=== PATIENT | male | born 1995 | race African-American/Black ===

== ENCOUNTER 2025-01-15 08:08 | Emergency (ER) | payer SELFPAY ==
[~2025-01-15] VITALS: Ht 180.3 cm; Wt 75.2 kg
[2025-01-15] MEDS: albuterol 2.5 MG/3 ML nebule NEB ONE (08:24)
--- NOTE | 2025-01-15 08:26 | Physician Documentation ---
History of Present Illness ~ Chief Complaint: Asthma Stated Complaint: ASTHMA Time Seen by MD: 08:17 HPI He had a 29-year-old male presents to the ED with a complaint of wheezing and shortness a breath which has increased over the last several days he adds that he has a chronic nasal congestion. States he is new to the area proximally three months in his not gotten any prescription from any doctors locally. States he is using albuterol 2-3 times daily does not currently have a inhaled steroid prescribed to him. Reports that his wheezing is worse at night. Medication Reconciliation Allergies: Coded Allergies: No Known Allergies (Unverified , 01/15/25) Scheduled Budesonide/Formoterol Fumarate (Symbicort 80-4.5 Mcg Inhaler), 2 PUFFS INH Q12H Guaifenesin (Mucinex), 1 TAB PO Q12H Terbinafine Hcl (Terbinafine Hcl), 1 APPLIC TOP Q12H Scheduled PRN albuterol inhaler (Pro-Air Inhaler), 2 PUFFS INH Q4HPRN PRN for wheezing Review of Systems All Other Systems at this time: Reviewed and Negative ROS As stated above in the HPI, otherwise all systems are reviewed and negative. Physical Exam Vital Signs: Temperature: 98.1, Source: Oral, Heart Rate: 95, Respiratory Rate: 16, BP: 138/81, Pulse Oximetry: 94, Weight: 75.200 Oxygen Flow Rate: 0 Physical Exam General: Alert, mild distress Neck: Full range of motion. Respiratory: wheezing b/l Chest: No accessory muscle use. Cardiovascular: Regular rate and rhythm, no murmurs. Neurologic: Oriented x4. Psychiatric: Normal mood and affect. Progress Results/Orders Results/Orders Completed Orders - SUKHI TOVAR NP Albuterol 2.5mg/3ml Nebule (Proventil 2. (01/15/25 08:20) * Rt Notification Q1H (01/15/25 08:16) Ipratropium Nebule (Atrovent Nebule) (01/15/25 08:30) Dexamethasone Inj (Decadron 10mg/Ml Inj) (01/15/25 08:32) Medications Received in ER Medications (Trade) Dose Ordered Sig/Gray Route PRN Reason Start Time Stop Time Status Last Admin Dose Admin (Proventil 2.5 MG/3ML nebule) 2.5 mg ONCE ONCE NEB 01/15/25 08:20 01/15/25 08:21 DC 01/15/25 08:24 2.5 MG (Atrovent nebule) 0.5 mg ONCE ONCE IH 01/15/25 08:30 01/15/25 08:31 DC 01/15/25 08:33 0.5 MG (Decadron 10mg/ ml inj) 10 mg ONCE STAT PO 01/15/25 08:32 01/15/25 08:33 DC 01/15/25 08:36 10 MG Vital Signs 01/15/25 01/15/25 01/15/25 01/15/25 08:09 08:19 08:27 08:41 Temp 98.1 Pulse 95 82 88 Resp 16 16 22 18 B/P (MAP) 138/81 Pulse Ox 94 96 100 O2 Delivery Room Air* Room Air* O2 Flow Rate 0 0 0 FiO2 21 21 01/15/25 09:21 Temp 98.6 Pulse 80 Resp 16 B/P (MAP) 122/87 Pulse Ox 98 Medical Decision Making Additional information obtaine: old records Findings Patient presented with a an acute asthma exacerbation and also had a complaint of a circular rash in his left neck with a central clearing. After receiving breathing treatment and dexamethasone he reported improved symptoms. Going to send him multiple medications to his pharmacy for better maintenance of his asthma. In addition I am going to send him a topical medication to treat his ringworm Heart Score: 0 Differential Dx:Considerations: Include: anxiety, asthma, bronchitis, cardiogenic shock, CHF, COPD, dysrhythmia, hypertension, accelerated, hypertension, essential, hypertension, malignant, hyperventilation, hyponatremia, myocardial infarction, panic attack, pneumonia, pneumonitis, pneumothorax, PSVT, pulmonary embolism, respiratory distress, respiratory fa ilure, sinusitis, upper resp. infection, other Departure Disposition: 01 HOME / SELF CARE / HOMELESS Impression: Primary Impression: Asthma Additional Impression: Acute bronchitis Condition: Improved Discharge Instructions: Asthma Attack Prevention, Adult, Body Ringworm Departure Forms: Excuse form Work or School Excused From: Work Excuse beginning now through the following date: Jan 16, 2025 Referrals: NO PRIMARY CARE PROVIDER (PCP) Prescriptions Terbinafine Hcl (TERBINAFINE HCL) 1 % Cream..g. 1 APPLIC TOP Q12H for 14 Days, #30 GM 0 Refills Prov: SUKHI TOVAR NP 01/15/25 albuterol inhaler (Pro-Air Inhaler) 8.5 Gm Inhaler 2 PUFFS INH Q4HPRN PRN for wheezing for 30 Days, #18 GM Prov: SUKHI TOVAR NP 01/15/25 Budesonide/Formoterol Fumarate (Symbicort 80-4.5 Mcg Inhaler) 80 Mcg-4.5 Mcg/Actuation Hfa.aer.ad 2 PUFFS INH Q12H for 30 Days, #1 GM 0 Refills Prov: SUKHI TOVAR NP 01/15/25 Guaifenesin (Mucinex) 600 Mg Tablet.sa 1 TAB PO Q12H for cough for 10 Days, #20 TAB 0 Refills Prov: SUKHI TOVAR NP 01/15/25 Education Educated: Patient Educated regarding: diagnosis Signature Scribe Signature: r Attestation: Scribed for Sukhi Tovar Np by Sukhi Matos NP . 01/15/25 08:25 SUKHI TOVAR NP Jan 15, 2025 08:26
[2025-01-15 08:27] VITALS: PULSE 82; RESP 22; O2SAT 96
[2025-01-15] MEDS ORDERED: ALBU8HFA INH (08:28)
[2025-01-15] MEDS ORDERED: BUDE10.22 INH (08:28)
[2025-01-15] MEDS ORDERED: GUAI600T45 PO (08:28)
[2025-01-15] MEDS: ipratropium 0.5 MG/2.5ML nebule IH ONE (08:33)
[2025-01-15] MEDS: dexamethasone sod phosphate 10mg/ml inj PO STA (08:36)
[2025-01-15 08:41] VITALS: PULSE 88; RESP 18; O2SAT 100
[2025-01-15] MEDS ORDERED: TERB30CR8 TOP (08:52)
[2025-01-15 09:21] VITALS: BP 122/87; PULSE 80; RESP 16; TEMP 98.6; O2SAT 98
== END 2025-01-15 09:25 | disposition home or self-care (01) ==
LOC: ER 08:10
DX: J20.9 Acute bronchitis, unspecified (principal); J45.909 Unspecified asthma, uncomplicated; Z79.899 Other long term (current) drug therapy
CPT/HCPCS: 94640; 99283; J1100; 94760

== ENCOUNTER 2025-01-21 20:04 | Emergency (ER) | payer OTHER ==
[2025-01-21] VITALS (7 sets, daily range): BP systolic 123; BP diastolic 79; PULSE 80–104; RESP 16–22; TEMP 97.8; O2SAT 95–99
[~2025-01-21] VITALS: Ht 180.3 cm; Wt 77.3 kg
[~2025-01-21 20:04] MED LIST: ALBU8HFA INH; BUDE10.22 INH; GUAI600T45 PO; TERB30CR8 TOP
[2025-01-21] MEDS ORDERED: albuterol 2.5 MG/3 ML nebule NEB ONE (20:10)
--- NOTE | 2025-01-21 20:38 | Physician Documentation ---
History of Present Illness ~ Chief Complaint: Respiratory Distress Stated Complaint: ASTHMA ATTACK Time Seen by MD: 20:15 HPI This is a 29-year-old male with a history of asthma who presents with shortness of breath and wheezing reporting symptoms consistent with asthma attack after encountering in allergic trigger at work. Patient reports that he was seen for an asthma exacerbation a week ago in his had a cough since then. Patient reports that his rescue inhaler did not provide adequate relief, patient reports that he is new to the area and does not have a regular preventative asthma medication prescribed. Patient reports no other acute symptoms or concerns including no recent illness or a fever. Medication Reconciliation Allergies: Coded Allergies: No Known Allergies (Unverified , 01/21/25) Scheduled Budesonide/Formoterol Fumarate (Symbicort 80-4.5 Mcg Inhaler), 2 PUFFS INH Q12H Budesonide/Formoterol Fumarate (Budesonide-Formoterol 80-4.5), 2 PUFFS PO Q12H Guaifenesin (Mucinex), 1 TAB PO Q12H Guaifenesin (Mucinex), 1 TAB PO Q12H Loratadine (Loratadine), 1 TAB PO DAILY Prednisone* (Prednisone*), 1 TAB PO DAILY Pseudoephedrine Hcl (Pseudoephedrine Hcl), 1 TAB PO Q8H Terbinafine Hcl (Terbinafine Hcl), 1 APPLIC TOP Q12H Scheduled PRN albuterol inhaler (Pro-Air Inhaler), 2 PUFFS INH Q4HPRN PRN for wheezing albuterol inhaler (Pro-Air Inhaler), 1-2 PUFFS PO Q4H PRN for shortness of carlos th Past Medical History Past Medical History: Asthma Review of Systems ROS As stated above in the HPI, otherwise all systems are reviewed and negative. Physical Exam Vital Signs: Temperature: 97.8, Source: Oral, Heart Rate: 86, Respiratory Rate: 22, BP: 123/79, Pulse Oximetry: 95, Weight: 77.300 Physical Exam VITALS: Reviewed and as above. GENERAL: Alert, nontoxic appearing, no apparent distress. RESPIRATORY: Mild increased work of breathing, short of breath appearing, speaking in full clear sentences, inspiratory and expiratory wheezes scattered in all serra, bases slightly diminished CV: Regular rate and rhythm no murmur Progress Progress Note 2143: On reassessment patient is moving more air with increased aeration to b ases though widespread inspiratory and expiratory wheezes persist. 2257: On reassessment patient is moving more air and wheezes have decreased though are still present, patient is reporting feeling much better, we will treat with one more albuterol neb treatment prior to discharge. Results/Orders Results/Orders Orders - SUNITA CARTAGENAP Svn Treatment (01/21/25 20:08) Chest,Two Views (01/21/25 21:50) Svn Treatment (01/21/25 ) Svn Treatment (01/21/25 23:17) Completed Orders - SUNITA CARTAGENAP Albuterol 2.5mg/3ml Nebule (Proventil 2. (01/21/25 20:10) Methylprednisolone Sod Succ (Solumedrol (01/21/25 20:10) Ipratropium/Albuterol Nebule (Ipratrop/A (01/21/25 20:46) Chest,Two Views (01/21/25 21:50) Cbc/Diff (01/21/25 21:39) BMP (01/21/25 21:39) Albuterol 2.5mg/3ml Nebule (Proventil 2. (01/21/25 21:40) Albuterol 2.5mg/3ml Nebule (Proventil 2. (01/21/25 23:20) Medications Received in ER Medications (Trade) Dose Ordered Sig/Gray Route PRN Reason Start Time Stop Time Status Last Admin Dose Admin (SoluMEDROL 125mg inj) 125 mg ONCE ONCE IV 01/21/25 20:10 01/21/25 20:22 DC 01/21/25 21:29 125 MG (ipratrop/ albuterol 0.5-3(2.5) MG/3ml nebule) 3 ml NOW STAT NEB 01/21/25 20:46 01/21/25 20:56 DC 01/21/25 21:06 3 ML (Proventil 2.5 MG/3ML nebule) 2.5 mg ONCE ONCE NEB 01/21/25 21:40 01/21/25 21:44 DC 01/21/25 22:01 2.5 MG (Proventil 2.5 MG/3ML nebule) 2.5 mg ONCE ONCE NEB 01/21/25 23:20 01/21/25 23:21 DC 01/21/25 23:26 2.5 MG Vital Signs 01/21/25 01/21/25 01/21/25 01/21/25 20:16 21:00 21:11 22:02 Temp 97.8 Pulse 86 80 82 83 Resp 22 20 22 B/P (MAP) 123/79 Pulse Ox 95 99 97 O2 Delivery Room Air* Room Air Room Air* O2 Flow Rate 0 0 FiO2 01/21/25 01/21/25 01/21/25 22:10 23:27 23:34 Pulse 80 104 86 Resp 16 16 Pulse Ox 95 O2 Delivery Room Air* Room Air* Room Air* O2 Flow Rate 0 0 0 FiO2 Laboratory Tests Test 01/21/25 21:58 White Blood Count 9.2 Red Blood Count 4.76 Hemoglobin 14.5 Hematocrit 42.6 Mean Corpuscular Volume 89.5 Mean Corpuscular Hemoglobin 30.5 Mean Corpuscular Hemoglobin Concent 34.0 Red Cell Distribution Width 12.5 Platelet Count 294 Mean Platelet Volume 7.5 Neutrophils (%) (Auto) 48.2 Lymphocytes (%) (Auto) 35.0 Monocytes (%) (Auto) 8.4 Eosinophils (%) (Auto) 7.8 H Basophils (%) (Auto) 0.6 Neutrophils # (Auto) 4.4 Lymphocytes # (Auto) 3.2 Monocytes # (Auto) 0.8 Eosinophils # (Auto) 0.7 Basophils # (Auto) 0.1 CBC Comment Sodium Level 142 Potassium Level 3.5 Chloride Level 105 Carbon Dioxide Level 28.2 Anion Gap 9 Blood Urea Nitrogen 10 Creatinine 1.01 Estimated GFR/1.73 m2 > 90 BUN/Creatinine Ratio 9.9 L Glucose Level 94 Calcium Level 8.5 Albumin 4.2 Chemistry Comments EKG/XRAY/CT/US/VASC/MRI Chest X-Ray : Additional Comments Exam: CHEST,TWO VIEWS CLINICAL HISTORY: Cough and wheezing TECHNIQUE: Chest 2 views of the chest were obtained. COMPARISON: None FINDINGS: The heart size and pulmonary vasculature are normal. The lungs are clear. No pleural effusion is present. IMPRESSION: NO ACUTE CARDIOPULMONARY PROCESS. Electronically Signed by:ARSLAN FRYE MD Date & Time: 01/21/252154 Dictated by: ARSLAN FRYE MD Dictation date and time: 01/21/252147 I have reviewed and agree with the radiology report. I have reviewed and interpreted the imaging as: No focal consolidation or pneumothorax Medical Decision Making Additional information obtaine: old records Findings This is a 29-year-old male with a history of asthma who presented with worsened shortness of breath today after possible allergen exposure at work along with a cough for the past week after an asthma exacerbation one-week ago. Patient responded well to 1st breathing treatment with significant increase in aeration of the lungs though wheezes remained throughout therefore 2nd treatment ordered. Patient is otherwise well-appearing and not hypoxic and is hemodynamically stable. Chest x-ray did not demonstrate evidence of pneumonia and lab work was reassuring without abnormality. As patient is feeling much better after multiple neb treatments initial treatment with IV steroids he is appropriate for discharge, he is well-appearing hemodynamically stable and, and not hypoxic. Given patient does not have a primary care in the area and has repeat asthma exacerbations he will be discharged on preventative medications for one-month to give him time to establish with a primary care, patient will be started on an allergy medication daily, refill of as needed albuterol inhaler, and a combined ics-formoterol per stepwise asthma guidelines. Patient will additionally require short course of oral steroids and discharged with medications for upper respiratory tract infection which may be contributor to recent asthma flares. Patient provided careful return to care precautions, home care instructions, and follow up instructions which he verbalized understanding of. Heart Score: 0 Differential Dx:Considerations: Include: asthma, bronchitis, myocardial infarction, pneumonia, pulmonary embolism, respiratory distress, respiratory f ailure, sinusitis, upper resp. 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 Please follow up with your primary care provider in the next few days. Please return to the emergency department for any new or worsening concerning symptoms including but not limited to increasing shortness breath, chest pain, or if you develop a fever. Please take the generic Symbicort (Budesonide/Formoterol) as prescribed twice daily Please take the prescribed allergy medicine daily Please take the prescribed prednisone daily for the next five days, I recommend taking this medication in the morning to decrease the likelihood of insomnia which this medication can cause. Please take the guaifenesin as needed for chest congestion and productive cough to help clear mucous, take this medication with plenty of water and stay well hydrated Please take the prescribed pseudoephedrine as needed for nasal congestion Please use the prescribed albuterol inhaler as needed for shortness of breath and wheezing Referrals: NO PRIMARY CARE PROVIDER (PCP) Prescriptions Prednisone* (Prednisone*) 20 Mg Tablet 1 TAB PO DAILY for 5 Days, #5 TAB Prov: SUNITA CARTAGENA 01/21/25 albuterol inhaler (Pro-Air Inhaler) 8.5 Gm Inhaler 1-2 PUFFS PO Q4H PRN for shortness of breath, #1 INH Prov: SUNITA CARTAGENA [facility] 01/21/25 Guaifenesin (Mucinex) 1,200 Mg Tbbp.12hr 1 TAB PO Q12H for cough for 10 Days, #20 TAB 0 Refills Prov: SUNITA CARTAGENA 01/21/25 Loratadine (Loratadine) 10 Mg Tablet 1 TAB PO DAILY for allergy symptoms for 30 Days, #30 TAB 0 Refills Prov: SUNITA CARTAGENA 01/21/25 Pseudoephedrine Hcl (Pseudoephedrine Hcl) 60 Mg Tablet 1 TAB PO Q8H for cold symptoms for 10 Days, #30 TAB 0 Refills Prov: SUNITA CARTAGENA [facility] 01/21/25 Budesonide/Formoterol Fumarate (Budesonide-Formoterol 80-4.5) 80 Mcg-4.5 Mcg/Actuation Hfa.aer.ad 2 PUFFS PO Q12H for 30 Days, #10.2 GM 0 Refills Prov: SUNITA CARTAGENA [employer] 01/21/25 Education Educated: Patient Educated regarding: diagnosis, treatment, prognosis, need for follow up Signature Scribe Signature: No scribe Attestation: The note accurately reflects work and decisions made by me.LINDSAY Campos 01/22/25 01:05 SUNITA CARTAGENAP Jan 21, 2025 20:38
[2025-01-21] MEDS: ipratropium/albuterol 3ml nebule NEB STA (21:06)
--- NOTE | 2025-01-21 21:58 | RADIOLOGY REPORT ---
CLINICAL HISTORY: Cough and wheezing TECHNIQUE: Chest 2 views of the chest were obtained. COMPARISON: None FINDINGS: The heart size and pulmonary vasculature are normal. The lungs are clear. No pleural effusion is present. IMPRESSION: NO ACUTE CARDIOPULMONARY PROCESS.
[2025-01-21] MEDS: albuterol 2.5 MG/3 ML nebule NEB ONE ×2 (22:01→23:26)
[2025-01-21 22:14] LABS: MEAN PLATELET VOLUME 7.5 FL (7.4-10.4); RED CELL DISTRIBUTION WIDTH 12.5 % (11.5-14.5)
[2025-01-21 22:21] LABS: CREATININE 1.01 MG/DL (0.60-1.10); TOTAL CARBON DIOXIDE 28.2 MMOL/L (24-32); eCRCL 117 ML/MIN; eGFR > 90 ML/MIN
[2025-01-21] MEDS ORDERED: LORA10TA7 PO (23:31)
[2025-01-21] MEDS ORDERED: ALBU8HFA PO (23:31)
[2025-01-21] MEDS ORDERED: BUDE10.27 PO (23:31)
[2025-01-21] MEDS ORDERED: GUAI120015 PO (23:31)
[2025-01-21] MEDS ORDERED: PSEU60TA98 PO (23:31)
[2025-01-21] MEDS ORDERED: PRED20TA PO (23:36)
== END 2025-01-22 00:35 | disposition home or self-care (01) ==
LOC: ER 20:05
DX: J45.901 Unspecified asthma with (acute) exacerbation (principal)
CPT/HCPCS: 36415; 71046; 80048; 85025; 94640; 96374; 99285; J2919; 94760; A6449